=== PATIENT | male | born 1965 | race Caucasian/White ===

== ENCOUNTER 2020-07-15 20:29 | Emergency (ER) | payer OTHER, SELFPAY ==
[2020-07-15 20:30] VITALS: BP 151/88; PULSE 90; RESP 20; TEMP 37.7; O2SAT 96; BMI 31.2
--- NOTE | 2020-07-15 21:02 | CT_ITS ---
STUDY: CT ABDOMEN AND PELVIS WITHOUT CONTRAST REASON FOR EXAM: Male, 55 years old. Kidney Stone RADIATION DOSAGE (If Supplied By Facility): CTDIvol = ( 13.65 ) mGy, DLP = ( 733.35 ) mGycm TECHNIQUE: Transaxial images were obtained from the dome of the diaphragm to the symphysis pubis without oral contrast, and without intravenous contrast. Sagittal and coronal images were reconstructed. Individualized dose optimization techniques were used for this CT. COMPARISON: None. FINDINGS: The visualized lung bases are unremarkable. The visualized portions of the heart are within normal limits. Normal liver with incidental subcentimeter cyst. Normal gallbladder and extrahepatic biliary system. Normal spleen. Normal pancreas. Normal bilateral adrenal glands. Right kidney has a punctate nonobstructing stones of the mid and lower right kidney. Left kidney shows mild hydronephrosis related to 2 adjacent stones in the mid left ureter with the largest measuring 5.5 mm. See coronal image 65 and axial image 94. Additional tiny left renal stones are seen in the upper and lower pole. Evaluation of the GI tract is limited by absence of oral contrast. Cannot exclude stomach wall thickening. No dilated loops of bowel or evidence for obstruction. Cannot exclude segmental thickening of the [place] of the small or large bowel. Cannot exclude enteritis or colitis. Moderate diffuse fecal retention. Appendix within normal limits. Grossly normal aorta and retroperitoneum. In the pelvis, grossly normal bladder and rectum. Bilateral small inguinal hernias. Normal osseous structures. CT/Abdomen/Pelvis without Cont IMPRESSION: Obstruction of the left kidney, collecting system and ureter from 2 adjacent mid left ureteral stones, with the largest measuring 5 mm. No additional tiny bilateral nonobstructing stones. Electronically Signed: Colin Faith MD at 22:07 EST , Service support ,
--- NOTE | 2020-07-15 21:02 | ED.VIS.GEN ---
History of Present Illness Chief Complaint: Flank Pain Informant: Patient Narrative: 55-year-old male states that over the weekend he developed left lower quadrant abdominal pain and nausea vomiting. He would intermittently get better and his symptoms returned. Today the symptoms were significantly more worse and he was vomiting so he went to urgent care. He states that they checked his urine gave him a shot and told him that he had a kidney stone and that if his symptoms return she should come to emergency. The patient states that about a month ago he noticed some blood in his urine. He states that resolved. He has no history of kidney stones. He states if he had some pain medicine at home probably could handle this. No fevers or chills. Normal bowel movements. He has a history of diabetes. At the time of the examination he states he feels significantly better. Past Medical History - Allergies and Home Meds Allergies/Adverse Reactions: Allergies No Known Allergies Allergy (Verified 07/15/20 21:28) Primary Care Physician: NOT,DEFINED [NON-STAFF] - Past Medical History: None - Diabetes Surgical History: noncontributory, - - Shoulder Lives: Spouse/ Significant Other Drugs: None Review of Systems General: Denies: Chills, Fever, Sweats Eyes: Denies: Visual changes - bilaterally, Diplopia ENT: Denies: Rhinorrhea, Sore throat Cardiovascular: Denies: Chest pain, Palpitations Respiratory: Denies: Dyspnea, Cough, Dyspnea on exertion Gastrointestinal: Reports: Abdominal pain, Nausea, Vomiting. Denies: Diarrhea, Melena, Hematochezia Genitourinary: Denies: Dysuria, Hematuria, Frequency Musculoskeletal: Denies: Back pain, Extremity Pain Skin: Denies: Rash, Wounds Neurological: Denies: Headache, Weakness, Numbness Physical Exam Vital Signs/Narrative: Vital Signs Temp Pulse Resp BP Pulse Ox 07/15/20 20:30 100 F H 90 20 H 151/88 H 96 Inital Vital Signs reviewed: Yes General: Well nourished, Well developed, No Acute Distress Head: Normocephalic, Atraumatic Eyes: Perrl, EOMI ENT: Moist mucous membranes, No rhinorrhea Neck: Supple, Nontender Cardiovascular: Regular rate, Regular rhythm, No murmurs Respiratory: No distress, CTA bilaterally, Chest nontender Abdomen: Soft, Nontender, Nondistended, Normal bowel sounds Back: Nontender, Normal Inspection Extremities: Nontender, No edema Skin: Normal color, No rash Neurological: Alert, Oriented x3, Cranial nerves II-XII grossly intact, Normal Strength, Normal Sensation Psychological: Normal affect, Normal Mood Diagnostic/Tx/Re-eval Clinical Impression(s) from Imaging Studies Abdomen/Pelvis CT 07/15/20 21:02 IMPRESSION: Obstruction of the left kidney, collecting system and ureter from 2 adjacent mid left ureteral stones, with the largest measuring 5 mm. No additional tiny bilateral nonobstructing stones. Electronically Signed: Colin Faith MD at 22:07 EST , Service support , Laboratory Last Values WBC 7.5 K/mm3 (4.4-11.0) 07/15/20 21:36 RBC 4.87 M/mm3 (4.6-6.2) 07/15/20 21:36 Hgb 13.9 g/dL (13.0-16.5) 07/15/20 21:36 Hct 41.9 % (40-54) 07/15/20 21:36 MCV 86.0 fL (80-94) 07/15/20 21:36 MCH 28.5 pg (27.0-32.0) 07/15/20 21:36 MCHC 33.2 g/dL (32-36) 07/15/20 21:36 RDW Std Deviation 41.2 fl (35.1-43.9) 07/15/20 21:36 RDW Coeff of Rebecca 13.2 % (11.6-14.6) 07/15/20 21:36 Plt Count 201 K/mm3 (150-450) 07/15/20 21:36 MPV 10.0 fl (6.2-12.0) 07/15/20 21:36 Immature Gran % (Auto) 0.400 % (0.0-0.9) 07/15/20 21:36 Neut % (Auto) 79.3 % (47-70) H 07/15/20 21:36 Lymph % (Auto) 8.3 % (19-41) L 07/15/20 21:36 [place] % (Auto) 11.2 % (0-10) H 07/15/20 21:36 Eos % (Auto) 0.7 % (0-5) 07/15/20 21:36 Baso % (Auto) 0.1 % (0-1) 07/15/20 21:36 Absolute Neuts (auto) 5.9 X10^3/uL (2.0-7.7) 07/15/20 21:36 Absolute Lymphs (auto) 0.62 X10^3/uL (0.83-4.51) L 07/15/20 21:36 Nucleated RBC % 0 % (0-5) 07/15/20 21:36 Sodium 139 mmol/L (136-145) 07/15/20 21:36 Potassium 3.2 mmol/L (3.5-5.1) L 07/15/20 21:36 Chloride 105 mmol/L (98-107) 07/15/20 21:36 Carbon Dioxide 25.0 mmol/L (21.0-32.0) 07/15/20 21:36 Anion Gap 9 (5-15) 07/15/20 21:36 BUN 17 mg/dL (7-18) 07/15/20 21:36 Creatinine 1.55 mg/dL (0.70-1.30) H 07/15/20 21:36 Estim Creat Clear Calc 52.58 ml/min 07/15/20 21:36 Est GFR (MDRD) Af Amer 60 mL/min (>60) 07/15/20 21:36 Est GFR (MDRD) Non-Af 49 mL/min (>60) L 07/15/20 21:36 BUN/Creatinine Ratio 11.0 RATIO (10-20) 07/15/20 21:36 Glucose 190 mg/dL (74-106) H 07/15/20 21:36 Calcium 9.1 mg/dL (8.5-10.1) 07/15/20 21:36 - Medical Decision Making Patient received Toradol and Zofran. CT demonstrates 2 ureteral stones mid ureter largest being 5.5 mm. Unfortunately patient's been unable to produce a urine specimen that is acceptable and sent to the lab. Basic blood work however is negative. Patient will be given urine strainer. I will write for pain and nausea medication as well as Keflex. He is to follow-up with urology return if worsening or concerns ED Disposition - Plan for ED Patient: Disposition: Home or Assisted Living Diagnosis: Ureteral calculus, left, Hydronephrosis, Renal colic on left side Instructions: ED Kidney Stone w/ Colic Prescriptions: Cephalexin [Keflex] 500 mg PO Q12 #10 cap Prescription Printed Oxycodone HCl/Acetaminophen [Percocet 5/325] 1 tab PO Q6H PRN PRN 5 Days #20 tab PRN Reason: Pain Prescription Printed Ketorolac [Toradol] 10 mg PO Q8H PRN #15 tab PRN Reason: Pain Prescription Printed Ondansetron [Zofran Odt] 4 mg PO Q6H PRN PRN #20 tab PRN Reason: Nausea Prescription Printed Referrals: Jack Monzon MD [STAFF PHYSICIAN] - As soon as possible
[2020-07-15] MEDS: Ketorolac 15 MG/ML Vial IV (21:31)
[2020-07-15] MEDS: Ondansetron 4 MG/2 ML Vial IV (21:31)
[2020-07-15 21:54] LABS: Absolute Lymphocyte Count 0.62 X10^3/uL (0.83-4.51); Absolute Neutrophil Count 5.9 X10^3/uL (2.0-7.7); Basophil# 0.01 X10^3/uL; Basophil% 0.1 % (0-1); Eosinophil# 0.05 X10^3/uL; Eosinophils% 0.7 % (0-5); Hematocrit 41.9 % (40-54); Hemoglobin 13.9 g/dL (13.0-16.5); Lymphocyte # 0.62 X10^3/ul (4.0); Lymphocyte % 8.3 % (19-41); Mean Corp Hgb Conc 33.2 g/dL (32-36); Mean Corpuscular Hgb 28.5 pg (27.0-32.0); Monocyte# 0.84 X10^3/uL; Monocyte% 11.2 % (0-10); NRBC Flagged by Analyzer 0 % (0-5); Neutrophil # 5.93 X10^3/uL (2.7-7.7); Neutrophil % 79.3 % (47-70); Platelet Count 201 K/mm3 (150-450); RBC Distribution Width CV 13.2 % (11.6-14.6); RBC Distribution Width SD 41.2 fl (35.1-43.9); Red Blood Count 4.87 M/mm3 (4.6-6.2); White Blood Count 7.5 K/mm3 (4.4-11.0)
[2020-07-15 22:07] LABS: Anion Gap 9 (5-15); BUN 17 mg/dL (7-18); Calcium,Total 9.1 mg/dL (8.5-10.1); Chloride 105 mmol/L (98-107); Creatinine, Serum 1.55 mg/dL (0.70-1.30); EST Glomerular Filtration Rate 49 mL/min (>60); Est Glom Filt Rate - Afr Amer 60 mL/min (>60); Estimated Creatinine Clearance 52.58 ml/min; Glucose 190 mg/dL (74-106); Potassium 3.2 mmol/L (3.5-5.1); Sodium Level 139 mmol/L (136-145)
[2020-07-15 23:00] VITALS: RESP 16
== END 2020-07-15 23:02 | disposition home or self-care (01) ==
PROVIDERS: Emergency Provider Emergency Medicine
DX: N13.2 Hydronephrosis with renal and ureteral calculous obstruction (principal); E11.9 Type 2 diabetes mellitus without complications
CPT/HCPCS: 74176; 80048; 85025; 96374; 96375; 99284; A4216; J2405

== ENCOUNTER 2020-07-21 16:12 | Day surgery (SDC) | payer OTHER, SELFPAY ==
[2020-07-21 16:29] VITALS: BP 157/90; PULSE 77; RESP 16; TEMP 37.3; O2SAT 96; BMI 31.5
[2020-07-21] MEDS: Lactated Ringers 1,000 ML 100 ML IV (16:49)
[2020-07-21 17:06] LABS: Bedside Glucose 115 mg/dL (70-110)
--- NOTE | 2020-07-21 17:27 | PCM.HP.STD ---
Problem List (1) Left ureteral calculus Status: Acute History of Present Illness Date of Admission: 07/21/20 Chief Complaint: Left obstructing ureteral calculus The patient is a 55 year old male who presented to my office with obstructing left ureteral stone, he has not had anything to eat or drink having severe pain on the left side he was admitted and were taken him for surgery today for obstruction. Past Medical History Allergies No Known Allergies Allergy (Verified 07/21/20 16:38) Home Medications: Ambulatory Orders Medication Instructions Recorded Cephalexin [Keflex] 500 mg PO Q12 #10 cap 07/15/20 Ketorolac [Toradol] 10 mg PO Q8H PRN #15 tab 07/15/20 Ondansetron [Zofran Odt] 4 mg PO Q6H PRN PRN #20 tab 07/15/20 metFORMIN (XR) [Glucophage Xr] 500 mg PO DAILY 07/21/20 Surgical History: noncontributory, - - Shoulder Lives: Alone Smoking Status: Never smoker Tobacco Use: Non-smoker Alcohol: None Drugs: None - *Family History Maternal History Items: No pertinent history Review of Systems Constitutional: Denies: Chills, Fever, Weight Change HEENT: Denies: Head Aches, Sinus Congestion, Sinus Drainage Cardiovascular: Denies: Chest Pain, Palpitations Respiratory: Denies: Cough, Shortness of breath at rest, Sputum production Gastrointestinal: Denies: Abdominal Pain, Nausea, Vomiting Genitourinary: Denies: Dysuria Musculoskeletal: Denies: Joint Pain, Joint Tenderness Skin: Denies: Rash, Wounds Neurological: Denies: Numbness, Tingling, Focal weakness Psychiatric: Denies: Anxiety, Depression, Homicidal Ideations, Suicidal Ideations Hematologic/ Lymphatic: Denies: Easy Bruising, Easy Bleeding VTE Information - Inpt Only VTE Present on Admission: No - Physical Exam Vitals/I&O's: Vital Signs Temp Pulse Resp BP Pulse Ox 99.1 F 77 16 157/90 H 96 07/21/20 16:29 07/21/20 16:29 07/21/20 16:29 07/21/20 16:29 07/21/20 16:29 Oxygen Delivery Method Room Air Weight: 96.8 kg Body Mass Index (BMI) 31.5 General: Alert, Oriented x3, Cooperative HEENT: Atraumatic, PERRLA, EOMI, Normocephalic Neck: Supple, No JVD, Negative Carotid Bruits Lungs: Clear to auscultation, Normal air movement Cardiovascular: Regular rate, No murmurs Abdomen: Bowel Sounds Present, Soft, Non Tender Extremities: No edema, Capillary Refill Less than 3 Seconds Skin: No rashes, No breakdown Musculoskeletal: No Tenderness to Palpation of Joints or Extremities Neurological: Cranial nerves II-XII grossly intact Psych/Mental Status: Normal Affect, Appropriate Microbiology Past 72 Hours 07/21/20 14:32 Interface Orders SARS-CoV-2 Antigen (Rapid) - Final Laboratory Results 07/21/20 16:33: POC Glucose 115 H Current Medications Lactated Ringer's () 1,000 mls @ 100 mls/hr IV .Q10H HAM Last Admin: 07/21/20 16:49 Dose: 100 mls/hr Documented by: Assessment/Plan All Active Problems Left ureteral calculus (Acute) Plan for left ureteroscopy laser of stone and stent
[2020-07-21] MEDS: Cefazolin 2 GM in 0.9% Normal Saline 100 ML IV (17:28)
--- NOTE | 2020-07-21 17:33 | DCINST_ITS ---
Discharge Diet: Light diet - advance as tolerated Discharge Activity: Return to Normal Activity, May not drive while taking narcotic pain medications., May Shower Call your doctor if your incision/area has: Continuous Slow Oozing, Sudden Increased Bleeding, Increased Pain/ Swelling, Increased Redness, Foul Smelling Discharge, Swelling at the incision site Instructions: Treating Kidney Stones: Ureteroscopic Stone Removal Additional Instructions: Stone were very difficult and stuck , I was able to laser the stones but need to leave the stent in for a few weeks to let the ureter heal up as it was very inflammed. you need to make an appt to see me and get stent out in a few weeks. call to make appointment. Allergies/Adverse Reactions: Allergies No Known Allergies Allergy (Verified 07/21/20 16:38) Medications to take at Discharge Cephalexin [Keflex] 500 mg PO Q12 #10 cap 07/15/20 Ketorolac [Toradol] 10 mg PO Q8H PRN #15 tab 07/15/20 Ondansetron [Zofran Odt] 4 mg PO Q6H PRN PRN #20 tab 07/15/20 Ciprofloxacin [Cipro] 500 mg PO BID #14 tab 07/21/20 Oxycodone HCl/Acetaminophen [Percocet 5/325] 1 tab PO Q4H PRN PRN 7 Days #20 tab 07/21/20 metFORMIN (XR) [Glucophage Xr] 500 mg PO DAILY 07/21/20 The following prescriptions were given: Ciprofloxacin [Cipro] 500 mg PO BID #14 tab Prescription Printed Oxycodone HCl/Acetaminophen [Percocet 5/325] 1 tab PO Q4H PRN PRN 7 Days #20 tab PRN Reason: Pain Prescription Printed Primary Care Physician: Care Physician,No Primary [Primary Care Provider] - Test Results: Test results from this visit will be discussed in further detail at your follow- up appointment, if applicable. Please Follow Up With: Jack Monzon MD - [phone] When: please call to make an appointment.
--- NOTE | 2020-07-21 18:35 | PCM.OPRPT ---
Problem List (1) Left ureteral calculus Status: Acute Report of Operation Date of Procedure: 07/21/20 Pre-Operative Diagnosis: Multiple left ureteral calculi Post-Operative Diagnosis: Same Surgery/Procedure Performed:: Left ureteroscopy, left retrograde pyelogram, balloon dilation of the left ureter, laser lithotripsy of stones and left stent placement Description of Surgical Findings:: This is a patient who presents to the hospital for treatment for an obstructing distal ureter calculi. I discussed with the patient how the surgery would be performed and we reviewed the risks and benefits of the surgery. The risk and benefits include the risk of failure to remove the stone completely and that the patient may need multiple procedures. We discussed the risk of an infection, the risk of bleeding. We discussed the very rare risk of serious complicated injury to the ureter. The patient understands that if the stone is not able to be removed safely that we may abort the procedure and place a stent. After full discussion and all questions address with the patient the consent form was signed the side was marked appropriately and the patient was taken back to the operating room for the procedure. The patient was taken back to the operating room. After induction of anesthesia by the anesthesiology team the patient was placed in dorsolithotomy position. The genitals were prepped and draped in usual sterile fashion. I went into the bladder with a 21 [place] rigid cystourethroscope through the urethra. Upon entering the bladder I inspected the trigone the left and right ureteral orifice and the bladder itself. I then cannulated the left ureteral orifice and advanced a 0.038 Glidewire up immediately impacted into a proximal ureteral stone. Then over the Glidewire I advanced a 5 Fr Ureteral catheter and performed a retrograde pyelogram with about 10cc of contrast, to delineate the anatomy and identify the stone location. Then a ureteral balloon dilator was advanced over the wire and the distal ureter was balloon dilated with a 12 Fr x 5cm balloon dilator. I had to do a second balloon dilation because it was very inflamed and stuck stones in the distal ureter, after 3 minutes of dilating the ureter the balloon was backloaded off the 0.038 glidewire then the safety wire was left in place. I then placed a second 0.038 Guidewire as a working wire and over the working 0.038 guidewire I went in with a Flexible 7.9fr ureteroscope. I was able to go inside with the 7.9Fr flexible utereroscope and I pulled out the working guidewire and then through the 7.9 fr flexible ureteroscope I ascended up the ureter with direct visualization until the stone was located, then I engaged the stone with laser lithotripsy using a 270miron laser fiber with energy setting of 6 Hertz and 0.6 J until the stone was lasered into tiny little pieces that should pass on their own. After successful deann lithotripsy of the stone and stone fragements, a retrograde pyelogram was performed with 10cc of contrast and no extravasation of contrast or perforation was identified in the ureter. I then backed out of the ureter left the wire in place and then over the 0.038 guidewire I placed a double coiled pigtail ureteral stent. The ureteral stent was advanced over the 0.038 guidewire under direct fluoroscopic guidance and direct cystoscopic visual guidance, once the stent was in good position I pulled the wire and the stent coiled in the kidney and bladder in good position. I then drained the patient's bladder and the cystoscope was removed and the patient was taken back to the recovery room in good position. The patient was given discharge instructions to call the office for instructions on when to come to the office to have the stent removed. Because the ureter was very inflamed and it was very difficult stones that were stuck in the ureter had to leave the stent in place for a few weeks to let it heal up. He will go home with pain medicine and antibiotics. Type of Anesthesia:: General Drains: stent left side 6 fr x 26 cm stent - Admit VTE Documentation VTE Present on Admission: No VTE Mechan Device Prophylaxis: SCD's
[2020-07-21 18:45] VITALS: BP 157/90; BP 167/88; PULSE 69; RESP 18; TEMP 36.3; O2SAT 94
[2020-07-21 19:00] VITALS: BP 157/90; BP 167/97; PULSE 74; RESP 16; O2SAT 97
[2020-07-21 19:15] VITALS: BP 157/90; BP 186/99; PULSE 75; RESP 16; O2SAT 93
[2020-07-21 19:30] VITALS: BP 157/90; BP 173/87; PULSE 69; RESP 16; TEMP 36.5; O2SAT 95
[2020-07-21 19:37] VITALS: BP 157/90
== END 2020-07-21 19:59 | disposition home or self-care (01) ==
LOC: SDC 16:15 → MS3 16:18
PROVIDERS: Referring Provider Urology; Visit Provider Urology
PROC: 0TJ98ZZ Inspection of Ureter, Via Natural or Artificial Opening Endoscopic (ICD-10-PCS; CPT 52352; principal; 2020-07-21 16:20)
DX: N20.1 Calculus of ureter (principal); E11.9 Type 2 diabetes mellitus without complications; Z20.822 Contact with and (suspected) exposure to COVID-19; Z79.84 Long term (current) use of oral hypoglycemic drugs
CPT/HCPCS: 52356; 76000; 82962; 87426; J7120; C1726; C1769; J2405